=== PATIENT | male | born 1990 | race Caucasian/White ===

== ENCOUNTER 2016-12-23 18:00 | Emergency (ER) | payer OTHER ==
[~2016-12-23] VITALS: Ht 172.7 cm; Wt 86.3 kg
[2016-12-23] MEDS ORDERED: ASCORBIC ACID500 M3 PO (20:45)
[2016-12-23] MEDS ORDERED: ULTRAM50 MG PO (20:47)
[2016-12-23] MEDS ORDERED: MOTRIN800 MG PO (20:47)
[2016-12-23 21:28] VITALS: BP 136/82
== END 2016-12-23 21:33 | disposition home or self-care (01) ==
LOC: EME 18:00
PROC: 2W3QX1Z Immobilization of Right Lower Leg using Splint (ICD-10-PCS; principal; 2016-12-23)
DX: S82.51XA Displaced fracture of medial malleolus of right tibia, initial encounter for closed fracture (principal); W17.89XA Other fall from one level to another, initial encounter; Y92.810 Car as the place of occurrence of the external cause; Z88.0 Allergy status to penicillin
CPT/HCPCS: 73610; 99281; 99284

== ENCOUNTER 2017-02-15 01:00 | Emergency (ER) | payer OTHER ==
[~2017-02-15] VITALS: Ht 172.7 cm; Wt 80.1 kg
[~2017-02-15 01:00] MED LIST: ASCORBIC ACID500 M3 PO; MOTRIN800 MG PO; ULTRAM50 MG PO
[2017-02-15 01:51] LABS: HEMATOCRIT 43.6 % (38.0-50.0); MCHC 33.5 G/DL (30.0-36.0); MCV 89.5 FL (86-99); MEAN PLAT.VOLUME 9.8 uM^3 (9.0-12.4); PLATELET COUNT 243 K/uL (156-360); RBC DIS.WIDTH-CV 11.8 % (11.8-14.6); RBC DIS.WIDTH-SD 38.2 % (39-53); RED BLOOD COUNT 4.87 M/uL (4.00-5.50); WHITE BLOOD COUNT 7.6 K/uL (4.1-10.2)
[2017-02-15 01:59] LABS: CHLORIDE 110 mEq/L (99-109); POTASSIUM 3.3 mEq/L (3.7-5.4)
[2017-02-15 02:00] LABS: SODIUM 147 mEq/L (136-147)
[2017-02-15 02:01] LABS: GLUCOSE 109 mg/dL (70-99)
[2017-02-15 02:03] LABS: ANION GAP 16 MEQ/L (2-14)
[2017-02-15 02:04] LABS: SERUM ETHYL ALCOHOL 110 mg/dL
[2017-02-15 02:05] LABS: GFR ESTIMATE (CALCULATED) > 59 mL/min/
[2017-02-15 02:06] LABS: UREA NITROGEN (BUN) 16 mg/dL (9-23)
[2017-02-15 03:25] VITALS: BP 117/68
== END 2017-02-15 03:35 | disposition home or self-care (01) ==
LOC: EME → EDBD 01:00 → EME 01:00
PROVIDERS: Emergency Medicine
PROC: 0HQEXZZ Repair Left Lower Arm Skin, External Approach (ICD-10-PCS; principal; 2017-02-15)
DX: S51.812A Laceration without foreign body of left forearm, initial encounter (principal); X78.9XXA Intentional self-harm by unspecified sharp object, initial encounter; Z72.0 Tobacco use
CPT/HCPCS: 80048; 81003; 85027; 90837; 99281; 99284; G0480

== ENCOUNTER 2017-03-06 23:58 | Emergency (ER) | payer OTHER ==
[~2017-03-06] VITALS: Ht 172.7 cm; Wt 76.9 kg
[2017-03-07 01:32] VITALS: BP 108/79
== END 2017-03-07 01:34 | disposition home or self-care (01) ==
LOC: EME → EDBD 23:58 → EME 23:58
PROC: 2W3QX1Z Immobilization of Right Lower Leg using Splint (ICD-10-PCS; principal; 2017-03-06)
DX: S82.51XA Displaced fracture of medial malleolus of right tibia, initial encounter for closed fracture (principal); X50.1XXA Overexertion from prolonged static or awkward postures, initial encounter; Y93.02 Activity, running
CPT/HCPCS: 73610; 73630; 99281; 99283

== ENCOUNTER 2017-03-07 01:42 | Emergency (ER) | payer OTHER ==
[~2017-03-07] VITALS: Ht 172.7 cm; Wt 82.1 kg
[2017-03-07 04:20] LABS: HEMATOCRIT 43.3 % (38.0-50.0); MCH 29.6 PG (29.0-34.0); MCHC 33.3 G/DL (30.0-36.0); MCV 88.9 FL (86-99); MEAN PLAT.VOLUME 9.5 uM^3 (9.0-12.4); PLATELET COUNT 241 K/uL (156-360); RBC DIS.WIDTH-CV 12.3 % (11.8-14.6); RBC DIS.WIDTH-SD 40.1 % (39-53); RED BLOOD COUNT 4.87 M/uL (4.00-5.50); WHITE BLOOD COUNT 8.5 K/uL (4.1-10.2)
[2017-03-07 04:28] LABS: CHLORIDE 102 mEq/L (99-109); POTASSIUM 3.8 mEq/L (3.7-5.4); SODIUM 137 mEq/L (136-147)
[2017-03-07 04:30] LABS: GLUCOSE 86 mg/dL (70-99)
[2017-03-07 04:31] LABS: ANION GAP 6 MEQ/L (2-14)
[2017-03-07 04:33] LABS: GFR ESTIMATE (CALCULATED) > 59 mL/min/; SERUM ETHYL ALCOHOL < 10 mg/dL
[2017-03-07 04:35] LABS: UREA NITROGEN (BUN) 17 mg/dL (9-23)
[2017-03-07 04:37] LABS: SALICYLATE < 5.0 MG/DL (15-30)
[2017-03-07 05:06] LABS: AMPHETAMINE NEGATIVE (500 ng/mL); BARBITURATES NEGATIVE (200 ng/mL); BENZODIAZEPINES NEGATIVE (150 ng/mL); COCAINE NEGATIVE (150 ng/mL); INTERNAL CONTROLS VALID? YES; METHADONE NEGATIVE (200 ng/mL); METHAMPHETAMINE NEGATIVE (500 ng/mL); OPIATES (MORPHINE) NEGATIVE (100 ng/mL); OXYCODONE NEGATIVE (100 ng/mL); PHENCYCLIDINE NEGATIVE (25 ng/mL); PROPOXYPHENE NEGATIVE (300 ng/mL); THC CANNABINOIDS NEGATIVE (50 ng/mL); TRICYCLIC ANTIDEPRESSANTS NEGATIVE (300 ng/mL)
[2017-03-07 12:11] VITALS: BP 110/52
== END 2017-03-07 12:13 ==
LOC: EME 01:42
PROVIDERS: Emergency Medicine
DX: R45.851 Suicidal ideations (principal); F32.9 Major depressive disorder, single episode, unspecified; F43.23 Adjustment disorder with mixed anxiety and depressed mood
CPT/HCPCS: 80048; 85027; 90837; G0480

== ENCOUNTER 2017-10-02 20:38 | Inpatient (IN) | payer OTHER ==
[~2017-10-02] VITALS: Ht 172.7 cm; Wt 77.1 kg
[2017-10-02 23:24] LABS: BASOPHIL (%) 0.5 % (0-1); BASOPHIL COUNT 0.1 K/uL (0-0.1); EOSINOPHIL COUNT 0.1 K/uL (0-0.3); HEMATOCRIT 43.9 % (38.0-50.0); IMMATURE GRANULOCYTE (%) 0.5 % (0.0-0.7); LYMPHOCYTE (%) 19.1 % (15-42); LYMPHOCYTE COUNT 2.4 K/uL (1.0-2.8); MCH 31.2 PG (29.0-34.0); MCHC 34.2 G/DL (30.0-36.0); MCV 91.3 FL (86-99); MONOCYTE COUNT 1.4 K/uL (0-0.8); NEUTROPHIL (%) 67.9 % (45-76); NEUTROPHIL COUNT 8.5 K/uL (1.8-6.4); PLATELET COUNT 249 K/uL (156-360); RBC DIS.WIDTH-SD 40.6 % (39-53); RED BLOOD COUNT 4.81 M/uL (4.00-5.50); WHITE BLOOD COUNT 12.5 K/uL (4.1-10.2)
[2017-10-02 23:35] LABS: ALBUMIN 4.4 g/dL (3.2-4.8); CHLORIDE 110 mEq/L (99-109); POTASSIUM 3.8 mEq/L (3.7-5.4); SODIUM 145 mEq/L (136-147)
[2017-10-02 23:37] LABS: GLUCOSE 93 mg/dL (70-99); TOTAL PROTEIN 7.1 g/dL (6.4-8.3)
[2017-10-02 23:39] LABS: TOTAL BILIRUBIN 0.8 mg/dL (0.0-1.0)
[2017-10-02 23:40] LABS: SERUM ETHYL ALCOHOL 167 mg/dL
[2017-10-02 23:41] LABS: ALKALINE PHOSPHATASE 63 IU/L (3-129); CREATININE 0.8 mg/dL (0.6-1.3); GFR ESTIMATE (CALCULATED) > 59 mL/min/ (58.99-99999)
[2017-10-02 23:42] LABS: UREA NITROGEN (BUN) 7 mg/dL (9-23)
[2017-10-02 23:43] LABS: AST (GOT) 39 IU/L (2-34)
[2017-10-02 23:44] LABS: ALT (GPT) 29 IU/L (3-49)
[2017-10-03 02:42] VITALS: BP 123/76
[2017-10-03 04:37] VITALS: BP 112/65
[2017-10-03 05:32] LABS: BASOPHIL (%) 0.5 % (0-1); BASOPHIL COUNT 0.1 K/uL (0-0.1); EOSINOPHIL (%) 1.7 % (0-5); EOSINOPHIL COUNT 0.2 K/uL (0-0.3); HEMATOCRIT 44.1 % (38.0-50.0); HEMOGLOBIN 14.5 G/DL (12.5-16.6); IMMATURE GRANULOCYTE (%) 0.4 % (0.0-0.7); LYMPHOCYTE (%) 15.7 % (15-42); LYMPHOCYTE COUNT 2.1 K/uL (1.0-2.8); MCH 30.3 PG (29.0-34.0); MCHC 32.9 G/DL (30.0-36.0); MCV 92.1 FL (86-99); MONOCYTE (%) 14.3 % (3-12); MONOCYTE COUNT 1.9 K/uL (0-0.8); NEUTROPHIL (%) 67.4 % (45-76); NEUTROPHIL COUNT 9.1 K/uL (1.8-6.4); PLATELET COUNT 249 K/uL (156-360); RBC DIS.WIDTH-CV 12.1 % (11.8-14.6); RBC DIS.WIDTH-SD 41.6 % (39-53); RED BLOOD COUNT 4.79 M/uL (4.00-5.50); WHITE BLOOD COUNT 13.6 K/uL (4.1-10.2)
[2017-10-03 07:50] VITALS: BP 136/76
[2017-10-03 09:45] VITALS: BP 134/78
[2017-10-03 12:20] VITALS: BP 122/63
[2017-10-03 12:21] VITALS: BP 122/63
[2017-10-03] MEDS ORDERED: PERCOCET 5/31 TABLET PO (12:48)
== END 2017-10-03 13:36 | disposition home or self-care (01) | DRG 564 ==
LOC: EME 20:38 → TRA 20:38 → EME 20:38 → 4EAST 23:00 → EDOF 23:00 → ENRESERV 10-03 00:37 → 4EAST 10-03 02:26
PROVIDERS: Emergency Medicine; Surgery
DX: S02.42XA Fracture of alveolus of maxilla, initial encounter for closed fracture (principal); S06.5X9A Traumatic subdural hemorrhage with loss of consciousness of unspecified duration, initial encounter; S03.2XXA Dislocation of tooth, initial encounter; Y04.0XXA Assault by unarmed brawl or fight, initial encounter; Y92.512 Supermarket, store or market as the place of occurrence of the external cause; R40.2413 Glasgow coma scale score 13-15, at hospital admission; F10.129 Alcohol abuse with intoxication, unspecified; Y90.6 Blood alcohol level of 120-199 mg/100 ml; F32.9 Major depressive disorder, single episode, unspecified; F17.210 Nicotine dependence, cigarettes, uncomplicated; Z98.1 Arthrodesis status; Z88.0 Allergy status to penicillin
CPT/HCPCS: 70450; 70486; 71046; 72125; 80053; 81003; 85025; 99281; 99285; G0480; J1170; J2405; J3010; J7030

== ENCOUNTER 2017-10-05 12:55 | Emergency (ER) | payer OTHER ==
[~2017-10-05] VITALS: Ht 172.7 cm; Wt 84.0 kg
[~2017-10-05 12:55] MED LIST changes: +PERCOCET 5/31 TABLET PO
[2017-10-05] MEDS ORDERED: CLEOCIN300 MG PO (16:05)
[2017-10-05] MEDS ORDERED: NAPROSYN500 MG PO (16:05)
[2017-10-05 16:22] VITALS: BP 136/76
== END 2017-10-05 16:27 | disposition home or self-care (01) ==
LOC: EME 12:55 → EXP 12:55
DX: K04.7 Periapical abscess without sinus (principal); S02.401A Maxillary fracture, unspecified side, initial encounter for closed fracture; F17.200 Nicotine dependence, unspecified, uncomplicated; Z88.0 Allergy status to penicillin
CPT/HCPCS: 99281; 99284; J1885

== ENCOUNTER 2017-10-09 23:50 | Inpatient (IN) | payer OTHER ==
[~2017-10-09] VITALS: Ht 172.7 cm; Wt 80.5 kg
[~2017-10-09 23:50] MED LIST changes: +CLEOCIN300 MG PO; +NAPROSYN500 MG PO
[2017-10-10] VITALS (13 sets, daily range): BP systolic 103–140; BP diastolic 59–85
[2017-10-10 02:16] LABS: HEMATOCRIT 40.4 % (38.0-50.0); HEMOGLOBIN 13.8 G/DL (12.5-16.6); MCH 31.2 PG (29.0-34.0); MCHC 34.2 G/DL (30.0-36.0); MCV 91.4 FL (86-99); PLATELET COUNT 240 K/uL (156-360); RBC DIS.WIDTH-CV 11.9 % (11.8-14.6); RED BLOOD COUNT 4.42 M/uL (4.00-5.50); WHITE BLOOD COUNT 8.4 K/uL (4.1-10.2)
[2017-10-10 02:31] LABS: ALBUMIN 3.9 g/dL (3.2-4.8); CHLORIDE 107 mEq/L (99-109); POTASSIUM 3.7 mEq/L (3.7-5.4); SODIUM 142 mEq/L (136-147)
[2017-10-10 02:34] LABS: GLUCOSE 87 mg/dL (70-99); TOTAL PROTEIN 6.4 g/dL (6.4-8.3)
[2017-10-10 02:35] LABS: PTT 26.8 SEC (25-37)
[2017-10-10 02:36] LABS: TOTAL BILIRUBIN 0.6 mg/dL (0.0-1.0)
[2017-10-10 02:37] LABS: ALKALINE PHOSPHATASE 63 IU/L (3-129); SERUM ETHYL ALCOHOL 66 mg/dL
[2017-10-10 02:38] LABS: CREATININE 0.8 mg/dL (0.6-1.3); GFR ESTIMATE (CALCULATED) > 59 mL/min/ (58.99-99999)
[2017-10-10 02:39] LABS: AST (GOT) 23 IU/L (2-34); UREA NITROGEN (BUN) 8 mg/dL (9-23)
[2017-10-10 02:40] LABS: ALT (GPT) 18 IU/L (3-49)
[2017-10-10 03:30] LABS: APPEARANCE CLEAR ((CLEAR)); BILIRUBIN NEGATIVE; BLOOD NEGATIVE; COLOR STRAW ((YELLOW)); GLUCOSE (STRIP) NEGATIVE; KETONES NEGATIVE; LEUKOCYTES NEGATIVE; NITRITE NEGATIVE; PROTEIN (STRIP) NEGATIVE; SPECIFIC GRAVITY 1.005 (1.000-1.030); UCUL ADDED? NO; UROBILINOGEN 0.2 MG/DL (0.2-1.0)
[2017-10-10 04:39] LABS: AMPHETAMINE NEGATIVE (500 ng/mL); BARBITURATES NEGATIVE (200 ng/mL); BENZODIAZEPINES NEGATIVE (150 ng/mL); BUPRENORPHINE NEGATIVE (10 ng/mL); COCAINE NEGATIVE (150 ng/mL); METHADONE NEGATIVE (200 ng/mL); METHAMPHETAMINE NEGATIVE (500 ng/mL); OPIATES (MORPHINE) NEGATIVE (100 ng/mL); OXYCODONE PRESUMPTIVE POSITIVE (100 ng/mL); PHENCYCLIDINE NEGATIVE (25 ng/mL); PROPOXYPHENE NEGATIVE (300 ng/mL); THC CANNABINOIDS PRESUMPTIVE POSITIVE (50 ng/mL); TRICYCLIC ANTIDEPRESSANTS NEGATIVE (300 ng/mL)
[2017-10-11] VITALS (17 sets, daily range): BP systolic 87–137; BP diastolic 58–76
[2017-10-11 05:25] LABS: HEMATOCRIT 41.3 % (38.0-50.0); HEMOGLOBIN 13.8 G/DL (12.5-16.6); MCH 31.1 PG (29.0-34.0); MCHC 33.4 G/DL (30.0-36.0); PLATELET COUNT 264 K/uL (156-360); RBC DIS.WIDTH-CV 11.9 % (11.8-14.6); RBC DIS.WIDTH-SD 40.8 % (39-53); RED BLOOD COUNT 4.44 M/uL (4.00-5.50); WHITE BLOOD COUNT 8.6 K/uL (4.1-10.2)
[2017-10-11 05:51] LABS: ALBUMIN 3.5 G/DL (3.2-4.8); ALKALINE PHOSPHATASE 55 IU/L (3-129); ALT (GPT) 13 IU/L (3-49); AST (GOT) 17 IU/L (2-34); CHLORIDE 107 MEQ/L (99-109); CREATININE 0.9 MG/DL (0.6-1.3); GFR ESTIMATE (CALCULATED) > 59 mL/min/ (58.99-99999); GLUCOSE 100 mg/dL (70-99); POTASSIUM 4.2 MEQ/L (3.7-5.4); SODIUM 143 MEQ/L (136-147); TOTAL PROTEIN 5.6 G/DL (6.4-8.3); UREA NITROGEN (BUN) 11 mg/dL (9-23)
[2017-10-12] VITALS (7 sets, daily range): BP systolic 104–124; BP diastolic 56–72
[2017-10-13 04:18] VITALS: BP 107/61
[2017-10-13 07:53] VITALS: BP 155/56
[2017-10-13 11:36] VITALS: BP 120/72
[2017-10-13] MEDS ORDERED: THERAGRAN1 TABLET PO (12:33)
[2017-10-13] MEDS ORDERED: FOLIC ACID1 MG PO (12:33)
[2017-10-13] MEDS ORDERED: THIAMINE HCL100 MG PO (12:38)
== END 2017-10-13 15:05 | disposition home or self-care (01) | DRG 87 ==
LOC: TRA 23:50 → EME 23:50 → ENRESERV 10-10 02:49 → EDOF 10-10 02:59 → 4WEST 10-10 02:59 → ENRESERV 10-10 02:59 → 4WEST 10-10 04:03 → ENRESERV 10-11 19:39 → 4EAST 10-11 21:44 → ENRESERV 10-12 12:02 → 3EAST 10-12 14:04
PROVIDERS: Emergency Medicine; Obstetrics & Gynecology
DX: S06.5X0A Traumatic subdural hemorrhage without loss of consciousness, initial encounter (principal); S02.42XA Fracture of alveolus of maxilla, initial encounter for closed fracture; Y04.0XXA Assault by unarmed brawl or fight, initial encounter; R40.0 Somnolence; R40.2410 Glasgow coma scale score 13-15, unspecified time; F32.9 Major depressive disorder, single episode, unspecified; F17.200 Nicotine dependence, unspecified, uncomplicated; Z66 Do not resuscitate; Z87.820 Personal history of traumatic brain injury; Z88.0 Allergy status to penicillin
CPT/HCPCS: 70450; 70486; 72125; 80053; 81003; 82948; 83735; 84999; 85027; 85610; 85730; 87641; 99281; 99285; G0480; J2765; J7030; J7120